=== PATIENT | male | born 1955 | race Caucasian/White ===

== ENCOUNTER 2024-01-04 09:26 | Outpatient (RCR) | payer MEDICARE, SELFPAY | END 2024-01-30 23:59 | disposition home or self-care (01) | LOC: SCTC 09:26 | PROVIDERS: PCP Family Medicine; Referring Provider Family Medicine; Visit Provider Nurse Practitioner Family | DX: D50.9 Iron deficiency anemia, unspecified (principal); D69.6 Thrombocytopenia, unspecified; I10 Essential (primary) hypertension; E11.9 Type 2 diabetes mellitus without complications | CPT/HCPCS: 99212; G0463 ==

== ENCOUNTER 2024-03-10 09:25 | Outpatient (RCR) | payer MEDICARE, SELFPAY | END 2024-04-01 23:59 | disposition home or self-care (01) | LOC: SCTC 09:25 | PROVIDERS: PCP Family Medicine; Referring Provider Family Medicine; Visit Provider Nurse Practitioner Family | DX: D50.9 Iron deficiency anemia, unspecified (principal); D69.6 Thrombocytopenia, unspecified; R16.2 Hepatomegaly with splenomegaly, not elsewhere classified; I10 Essential (primary) hypertension; M33.13 Other dermatomyositis without myopathy | CPT/HCPCS: 99212; G0463 ==

== ENCOUNTER → 2024-03-16 | Outpatient (CLI) | payer MEDICARE, SELFPAY ==
[2024-03-16 16:54] LABS: Basophils % (Auto) 0 % (0-2.5); Eosinophils % (Auto) 0 % (0-10); Hematocrit 41.8 % (41.0-53.0); Hemoglobin 14.3 g/dL (13.5-16.0); Immature Granulocytes % (Auto) 1 % (0-0); Immature Granulocytes Auto 0.04 Thou/mm3 (0.00-0.00); Immature Reticulocyte Fraction 10.9 % (2.3-13.4); Lymphocytes # (Auto) 0.2 Thou/mm3 (1.0-4.8); Lymphocytes % (Auto) 3 % (10-50); Mean Corpuscular HGB Conc 34.2 g/dl (31.0-37.0); Mean Corpuscular Hemoglobin 29.9 pg (25.0-35.0); Mean Corpuscular Volume 87 fL (80-100); Monocytes # (Auto) 0.3 Thou/mm3 (0.0-0.8); Monocytes % (Auto) 5 % (0-12); Neutrophils # (Auto) 6.1 Thou/mm3 (1.8-7.7); Neutrophils % (Auto) 91 % (37-80); Nucleated Red Blood Cell % 0 /100 WBC (0); Platelet Count 105 Thou/mm3 (140-440); RDW Standard Deviation 42.1 fL (35.1-43.9); Red Blood Count 4.78 Miln/mm3 (4.50-5.90); Reticulocyte % (Auto) 2.6 % (0.5-1.5); Reticulocyte Absolute Auto 121.9 Biln/L (25.0-75.0); Reticulocyte Hgb Content 35.8 pg (28.0-35.0); White Blood Count 6.7 Thou/mm3 (3.8-10.6)
[2024-03-16 17:25] LABS: Alanine Aminotransferase 20 U/L (10-49); Albumin, Serum 4.2 gm/dL (3.4-4.8); Albumin/Globulin Ratio 1.1 (1.2-2.2); Alkaline Phosphatase 78 U/L (46-116); Anion Gap 9 (7-16); Aspartate Amino Transferase 16 U/L (0-34); BUN/Creatinine Ratio 20 Ratio (12-20); Bilirubin,Total 0.5 mg/dL (0.3-1.2); Blood Urea Nitrogen 28 mg/dL (9-23); Calcium 9.1 mg/dL (8.3-10.6); Calcium (Corrected) 9.1 mg/dL (8.5-10.1); Carbon Dioxide 24.4 mMol/L (20.0-31.0); Chloride 100 mMol/L (98-107); Creatinine (Component) 1.4 mg/dL (0.6-1.3); Ferritin 365 ng/mL (10.5-307.3); Globulin 3.8 gm/dL (2.3-3.5); Osmolality,Calculated 296 (275-295); Potassium 4.7 mMol/L (3.4-5.1); Sodium 133 mMol/L (136-145); Total Iron Binding Capacity 272 mcg/dL (250-425); eGFR 55 See Note
[2024-03-16 19:37] LABS: Glucose 543 mg/dL (74-106)
[2024-03-16 19:49] LABS: Folate 22.43 ng/mL (>5.38); Vitamin B12 466 pg/mL (211-911)
[2024-03-16 20:00] LABS: Iron 54 mcg/dL (65-175); Percent Iron Saturation 19 % (20-55); Unsaturated Iron Binding 218 (225-295)
== END | disposition home or self-care (01) ==
LOC: SCTO 13:49
PROVIDERS: PCP Family Medicine; Referring Provider Dermatology; Visit Provider Nurse Practitioner Family
DX: D72.819 Decreased white blood cell count, unspecified (principal); E61.1 Iron deficiency; Z51.81 Encounter for therapeutic drug level monitoring
CPT/HCPCS: 36415; 80053; 82607; 82728; 82746; 83540; 83550; 85025; 85046

== ENCOUNTER → 2024-03-22 | Outpatient (CLI) | payer MEDICARE, SELFPAY ==
[2024-03-22 10:16] LABS: Misc Send Out* See Sep Rpt
[2024-03-22 11:17] LABS: Basophils % (Auto) 0 % (0-2.5); Eosinophils % (Auto) 0 % (0-10); Hematocrit 43.6 % (41.0-53.0); Hemoglobin 14.7 g/dL (13.5-16.0); Immature Granulocytes % (Auto) 1 % (0-0); Immature Granulocytes Auto 0.03 Thou/mm3 (0.00-0.00); Immature Reticulocyte Fraction 9.8 % (2.3-13.4); Lymphocytes # (Auto) 0.4 Thou/mm3 (1.0-4.8); Lymphocytes % (Auto) 6 % (10-50); Mean Corpuscular HGB Conc 33.7 g/dl (31.0-37.0); Mean Corpuscular Hemoglobin 30.3 pg (25.0-35.0); Mean Corpuscular Volume 90 fL (80-100); Monocytes # (Auto) 0.6 Thou/mm3 (0.0-0.8); Monocytes % (Auto) 9 % (0-12); Neutrophils # (Auto) 5.3 Thou/mm3 (1.8-7.7); Neutrophils % (Auto) 84 % (37-80); Nucleated Red Blood Cell % 0 /100 WBC (0); Platelet Count 121 Thou/mm3 (140-440); RDW Standard Deviation 43.6 fL (35.1-43.9); Red Blood Count 4.85 Miln/mm3 (4.50-5.90); Reticulocyte % (Auto) 2.1 % (0.5-1.5); Reticulocyte Absolute Auto 103.3 Biln/L (25.0-75.0); Reticulocyte Hgb Content 35.4 pg (28.0-35.0); White Blood Count 6.4 Thou/mm3 (3.8-10.6)
[2024-03-22 11:26] LABS: Glucose Estimated Average 275 mg/dL (80-131); Hemoglobin A1C 11.2 % Hgb (4.8-6.0)
[2024-03-22 11:34] LABS: Alanine Aminotransferase 21 U/L (10-49); Albumin, Serum 4.4 gm/dL (3.4-4.8); Albumin/Globulin Ratio 1.3 (1.2-2.2); Alkaline Phosphatase 81 U/L (46-116); Anion Gap 7 (7-16); Aspartate Amino Transferase 14 U/L (0-34); BUN/Creatinine Ratio 16 Ratio (12-20); Bilirubin,Total 0.6 mg/dL (0.3-1.2); Blood Urea Nitrogen 21 mg/dL (9-23); Calcium 9.4 mg/dL (8.3-10.6); Calcium (Corrected) 9.4 mg/dL (8.5-10.1); Carbon Dioxide 28.6 mMol/L (20.0-31.0); Cardiac Risk Estimate 4.5 RATIO (4.0-6.7); Chloride 103 mMol/L (98-107); Cholesterol 172 mg/dL (132-200); Creatinine (Component) 1.3 mg/dL (0.6-1.3); Globulin 3.5 gm/dL (2.3-3.5); Glucose 210 mg/dL (74-106); HDL Cholesterol 38 mg/dL (40-60); LDL Cholesterol,Calculated 93 mg/dL (0-130); Osmolality,Calculated 286 (275-295); Potassium 3.8 mMol/L (3.4-5.1); Sodium 139 mMol/L (136-145); Thyroid Stimulating Hormone 2.61 uIU/mL (0.55-4.78); Total Protein 7.9 gm/dL (5.7-8.2); Triglycerides 206 mg/dL (30-150); eGFR 60 See Note
[2024-03-22 11:46] LABS: Ferritin 464 ng/mL (10.5-307.3); PSA Medicare Annual Scrn 0.89 ng/mL (0-4.00); Total Iron Binding Capacity 288 mcg/dL (250-425)
[2024-03-22 11:46] LABS: Creatinine MALB Rnd Ur 245 mg/dL (30-125); Microalbumin Creat Ratio 52 mg/gCrea (<30); Microalbumin, Random Urine 127 mg/L (0-300)
[2024-03-22 11:59] LABS: Iron 74 mcg/dL (65-175); Percent Iron Saturation 25 % (20-55); Unsaturated Iron Binding 214 (225-295)
[2024-03-28 06:42] LABS: Gamma Glutamyl Transpeptidase* 17 U/L (3-70)
== END | disposition home or self-care (01) ==
LOC: COPL 09:51
PROVIDERS: PCP Nurse Practitioner Family; Referring Provider Nurse Practitioner Family; Visit Provider Nurse Practitioner Family
DX: K76.0 Fatty (change of) liver, not elsewhere classified (principal); D50.9 Iron deficiency anemia, unspecified; E11.9 Type 2 diabetes mellitus without complications; I10 Essential (primary) hypertension; E55.9 Vitamin D deficiency, unspecified; Z12.5 Encounter for screening for malignant neoplasm of prostate
CPT/HCPCS: 36415; 80053; 80061; 82043; 82306; 82570; 82728; 82977; 83036; 83540; 83550; 84153; 84443; 84466; 85025; 85046; G0103

== ENCOUNTER → 2024-04-26 | Outpatient (CLI) | payer MEDICARE, SELFPAY ==
[2024-04-26 12:21] LABS: Quantiferon-TB* See Sep Rpt
[2024-04-26 12:46] LABS: Basophils % (Auto) 0 % (0-2.5); Eosinophils % (Auto) 0 % (0-10); Hematocrit 42.8 % (41.0-53.0); Hemoglobin 14.6 g/dL (13.5-16.0); Immature Granulocytes % (Auto) 0 % (0-0); Immature Granulocytes Auto 0.03 Thou/mm3 (0.00-0.00); Lymphocytes # (Auto) 0.3 Thou/mm3 (1.0-4.8); Lymphocytes % (Auto) 4 % (10-50); Mean Corpuscular HGB Conc 34.1 g/dl (31.0-37.0); Mean Corpuscular Hemoglobin 29.8 pg (25.0-35.0); Mean Corpuscular Volume 87 fL (80-100); Monocytes # (Auto) 0.5 Thou/mm3 (0.0-0.8); Monocytes % (Auto) 7 % (0-12); Neutrophils # (Auto) 5.9 Thou/mm3 (1.8-7.7); Neutrophils % (Auto) 88 % (37-80); Nucleated Red Blood Cell % 0 /100 WBC (0); Platelet Count 117 Thou/mm3 (140-440); RDW Standard Deviation 41.1 fL (35.1-43.9); White Blood Count 6.8 Thou/mm3 (3.8-10.6)
[2024-04-26 13:26] LABS: Glucose Estimated Average 226 mg/dL (80-131); Hemoglobin A1C 9.5 % Hgb (4.8-6.0)
[2024-04-26 13:51] LABS: Alanine Aminotransferase 18 U/L (10-49); Albumin, Serum 4.1 gm/dL (3.4-4.8); Albumin/Globulin Ratio 1.3 (1.2-2.2); Anion Gap 11 (7-16); Aspartate Amino Transferase 16 U/L (0-34); BUN/Creatinine Ratio 21 Ratio (12-20); Bilirubin,Total 0.4 mg/dL (0.3-1.2); Blood Urea Nitrogen 27 mg/dL (9-23); Calcium 9.1 mg/dL (8.3-10.6); Calcium (Corrected) 9.1 mg/dL (8.5-10.1); Carbon Dioxide 24.5 mMol/L (20.0-31.0); Cardiac Risk Estimate 3.8 RATIO (4.0-6.7); Chloride 106 mMol/L (98-107); Cholesterol 128 mg/dL (132-200); Creatine Kinase 53 U/L (34-171); Creatinine (Component) 1.3 mg/dL (0.6-1.3); Ferritin 352 ng/mL (10.5-307.3); Globulin 3.1 gm/dL (2.3-3.5); Glucose 193 mg/dL (74-106); HDL Cholesterol 34 mg/dL (40-60); LDH (Lactate Dehydrogenase) 204 U/L (120-246); LDL Cholesterol,Calculated 66 mg/dL (0-130); Osmolality,Calculated 291 (275-295); Potassium 4.1 mMol/L (3.4-5.1); Sodium 141 mMol/L (136-145); Total Iron Binding Capacity 272 mcg/dL (250-425); Total Protein 7.2 gm/dL (5.7-8.2); Triglycerides 139 mg/dL (30-150); eGFR 60 See Note
[2024-04-26 14:29] LABS: Alkaline Phosphatase 71 U/L (46-116)
[2024-04-26 14:31] LABS: Iron 69 mcg/dL (65-175); Percent Iron Saturation 25 % (20-55); Unsaturated Iron Binding 203 (225-295)
[2024-04-26 14:38] LABS: Folate > 24.00 ng/mL (>5.38); Hepatitis A Antibody IgM Non Reactive (Non React); Hepatitis B Core Antibody IgM Non Reactive (Non React); Hepatitis B Surface Antigen Non Reactive (Non React); Hepatitis C Antibody Non Reactive (Non React); Vitamin B12 505 pg/mL (211-911)
== END | disposition home or self-care (01) ==
LOC: SCTO 11:51
PROVIDERS: PCP Nurse Practitioner Family; Referring Provider Nurse Practitioner Family; Visit Provider Dermatology
DX: D72.819 Decreased white blood cell count, unspecified (principal); E61.1 Iron deficiency; E11.9 Type 2 diabetes mellitus without complications; Z51.81 Encounter for therapeutic drug level monitoring
CPT/HCPCS: 36415; 80053; 80061; 80074; 82550; 82607; 82728; 82746; 83036; 83540; 83550; 83615; 85025; 86480

== ENCOUNTER 2024-05-05 09:00 | Outpatient (RCR) | payer MEDICARE, SELFPAY | END 2024-05-30 23:59 | disposition home or self-care (01) | LOC: SCTC 09:00 | PROVIDERS: PCP Nurse Practitioner Family; Referring Provider Nurse Practitioner Family; Visit Provider Nurse Practitioner Family | DX: D50.9 Iron deficiency anemia, unspecified (principal); D69.6 Thrombocytopenia, unspecified; R16.2 Hepatomegaly with splenomegaly, not elsewhere classified; I10 Essential (primary) hypertension; E11.9 Type 2 diabetes mellitus without complications; Z79.4 Long term (current) use of insulin; Z79.84 Long term (current) use of oral hypoglycemic drugs | CPT/HCPCS: 99212; G0463 ==

== ENCOUNTER → 2024-05-26 | Outpatient (CLI) | payer MEDICARE, SELFPAY ==
[2024-05-26 09:56] LABS: Misc Send Out* See Sep Rpt
[2024-05-26 10:33] LABS: Basophils % (Auto) 0 % (0-2.5); Eosinophils # (Auto) 0.1 Thou/mm3 (0.0-0.5); Eosinophils % (Auto) 1 % (0-10); Hematocrit 42.5 % (41.0-53.0); Hemoglobin 14.2 g/dL (13.5-16.0); Immature Granulocytes % (Auto) 0 % (0-0); Immature Granulocytes Auto 0.02 Thou/mm3 (0.00-0.00); Lymphocytes # (Auto) 0.3 Thou/mm3 (1.0-4.8); Lymphocytes % (Auto) 5 % (10-50); Mean Corpuscular HGB Conc 33.4 g/dl (31.0-37.0); Mean Corpuscular Hemoglobin 30.1 pg (25.0-35.0); Mean Corpuscular Volume 90 fL (80-100); Monocytes # (Auto) 0.5 Thou/mm3 (0.0-0.8); Monocytes % (Auto) 9 % (0-12); Neutrophils # (Auto) 5.1 Thou/mm3 (1.8-7.7); Neutrophils % (Auto) 85 % (37-80); Nucleated Red Blood Cell % 0 /100 WBC (0); Platelet Count 150 Thou/mm3 (140-440); RDW Standard Deviation 44.6 fL (35.1-43.9); Red Blood Count 4.72 Miln/mm3 (4.50-5.90); White Blood Count 6.1 Thou/mm3 (3.8-10.6)
[2024-05-26 10:48] LABS: Glucose Estimated Average 180 mg/dL (80-131); Hemoglobin A1C 7.9 % Hgb (4.8-6.0)
[2024-05-26 10:52] LABS: Ferritin 290 ng/mL (10.5-307.3); Iron 72 mcg/dL (65-175); Percent Iron Saturation 27 % (20-55); Total Iron Binding Capacity 265 mcg/dL (250-425); Unsaturated Iron Binding 193 (225-295)
[2024-05-26 10:53] LABS: Alanine Aminotransferase 18 U/L (10-49); Albumin, Serum 4.2 gm/dL (3.4-4.8); Albumin/Globulin Ratio 1.4 (1.2-2.2); Alkaline Phosphatase 64 U/L (46-116); Anion Gap 10 (7-16); Aspartate Amino Transferase 19 U/L (0-34); BUN/Creatinine Ratio 18 Ratio (12-20); Bilirubin,Total 0.5 mg/dL (0.3-1.2); Blood Urea Nitrogen 23 mg/dL (9-23); Calcium 8.8 mg/dL (8.3-10.6); Calcium (Corrected) 8.8 mg/dL (8.5-10.1); Carbon Dioxide 25.8 mMol/L (20.0-31.0); Chloride 108 mMol/L (98-107); Creatinine (Component) 1.3 mg/dL (0.6-1.3); Glucose 97 mg/dL (74-106); Osmolality,Calculated 290 (275-295); Potassium 3.8 mMol/L (3.4-5.1); Sodium 144 mMol/L (136-145); Total Protein 7.2 gm/dL (5.7-8.2); eGFR 60 See Note
== END | disposition home or self-care (01) ==
LOC: SCTO 09:45
PROVIDERS: PCP Physician Assistant; Referring Provider Nurse Practitioner Family; Visit Provider Nurse Practitioner Family
DX: D50.9 Iron deficiency anemia, unspecified (principal); E11.65 Type 2 diabetes mellitus with hyperglycemia; D72.819 Decreased white blood cell count, unspecified
CPT/HCPCS: 36415; 80053; 82728; 83036; 83540; 83550; 85025

== ENCOUNTER 2024-06-06 09:23 | Outpatient (RCR) | payer MEDICARE, SELFPAY | END 2024-06-29 23:59 | disposition home or self-care (01) | LOC: SCTC 09:23 | PROVIDERS: PCP Physician Assistant; Referring Provider Physician Assistant; Visit Provider Nurse Practitioner Family | DX: D69.6 Thrombocytopenia, unspecified (principal); D50.9 Iron deficiency anemia, unspecified; R16.2 Hepatomegaly with splenomegaly, not elsewhere classified | CPT/HCPCS: 99212; G0463 ==

== ENCOUNTER → 2024-06-22 | Outpatient (CLI) | payer MEDICARE, SELFPAY ==
[2024-06-22 09:51] LABS: Misc Send Out* See Sep Rpt
[2024-06-22 10:41] LABS: Basophils % (Auto) 0 % (0-2.5); Eosinophils # (Auto) 0.1 Thou/mm3 (0.0-0.5); Eosinophils % (Auto) 1 % (0-10); Hematocrit 41.9 % (41.0-53.0); Hemoglobin 14.1 g/dL (13.5-16.0); Immature Granulocytes % (Auto) 1 % (0-0); Immature Granulocytes Auto 0.04 Thou/mm3 (0.00-0.00); Lymphocytes # (Auto) 0.4 Thou/mm3 (1.0-4.8); Lymphocytes % (Auto) 7 % (10-50); Mean Corpuscular HGB Conc 33.7 g/dl (31.0-37.0); Mean Corpuscular Hemoglobin 29.7 pg (25.0-35.0); Mean Corpuscular Volume 88 fL (80-100); Monocytes # (Auto) 0.6 Thou/mm3 (0.0-0.8); Monocytes % (Auto) 11 % (0-12); Neutrophils # (Auto) 4.7 Thou/mm3 (1.8-7.7); Neutrophils % (Auto) 80 % (37-80); Nucleated Red Blood Cell % 0 /100 WBC (0); Platelet Count 129 Thou/mm3 (140-440); RDW Standard Deviation 42.4 fL (35.1-43.9); Red Blood Count 4.75 Miln/mm3 (4.50-5.90); White Blood Count 5.8 Thou/mm3 (3.8-10.6)
[2024-06-22 11:00] LABS: Glucose Estimated Average 154 mg/dL (80-131)
[2024-06-22 11:01] LABS: Alanine Aminotransferase 17 U/L (10-49); Albumin, Serum 4.3 gm/dL (3.4-4.8); Albumin/Globulin Ratio 1.5 (1.2-2.2); Alkaline Phosphatase 73 U/L (46-116); Anion Gap 10 (7-16); Aspartate Amino Transferase 18 U/L (0-34); BUN/Creatinine Ratio 19 Ratio (12-20); Bilirubin,Total 0.5 mg/dL (0.3-1.2); Blood Urea Nitrogen 26 mg/dL (9-23); Calcium 8.9 mg/dL (8.3-10.6); Calcium (Corrected) 8.9 mg/dL (8.5-10.1); Carbon Dioxide 25.9 mMol/L (20.0-31.0); Chloride 108 mMol/L (98-107); Creatinine (Component) 1.4 mg/dL (0.6-1.3); Globulin 2.9 gm/dL (2.3-3.5); Glucose 201 mg/dL (74-106); Osmolality,Calculated 297 (275-295); Potassium 4.1 mMol/L (3.4-5.1); Sodium 144 mMol/L (136-145); Total Protein 7.2 gm/dL (5.7-8.2); eGFR 55 See Note
[2024-06-22 11:03] LABS: Ferritin 325 ng/mL (10.5-307.3); Iron 53 mcg/dL (65-175); Percent Iron Saturation 20 % (20-55); Total Iron Binding Capacity 264 mcg/dL (250-425); Unsaturated Iron Binding 211 (225-295)
== END | disposition home or self-care (01) ==
LOC: COPL 09:31
PROVIDERS: PCP Nurse Practitioner Family; Referring Provider Nurse Practitioner Family; Visit Provider Nurse Practitioner Family
DX: D50.9 Iron deficiency anemia, unspecified (principal); E11.65 Type 2 diabetes mellitus with hyperglycemia
CPT/HCPCS: 36415; 80053; 82728; 83036; 83540; 83550; 85025

== ENCOUNTER → 2024-08-05 | Outpatient (CLI) | payer MEDICARE, SELFPAY ==
[2024-08-05 10:25] LABS: Basophils % (Auto) 1 % (0-2.5); Eosinophils % (Auto) 1 % (0-10); Hematocrit 43.6 % (41.0-53.0); Hemoglobin 14.5 g/dL (13.5-16.0); Immature Granulocytes % (Auto) 1 % (0-0); Immature Granulocytes Auto 0.03 Thou/mm3 (0.00-0.00); Immature Reticulocyte Fraction 11.7 % (2.3-13.4); Lymphocytes # (Auto) 0.3 Thou/mm3 (1.0-4.8); Lymphocytes % (Auto) 6 % (10-50); Mean Corpuscular HGB Conc 33.3 g/dl (31.0-37.0); Mean Corpuscular Hemoglobin 30.1 pg (25.0-35.0); Mean Corpuscular Volume 91 fL (80-100); Monocytes # (Auto) 0.5 Thou/mm3 (0.0-0.8); Monocytes % (Auto) 12 % (0-12); Neutrophils # (Auto) 3.4 Thou/mm3 (1.8-7.7); Neutrophils % (Auto) 80 % (37-80); Nucleated Red Blood Cell % 0 /100 WBC (0); Platelet Count 104 Thou/mm3 (140-440); RDW Standard Deviation 41.4 fL (35.1-43.9); Red Blood Count 4.82 Miln/mm3 (4.50-5.90); Reticulocyte % (Auto) 1.9 % (0.5-1.5); Reticulocyte Absolute Auto 93.5 Biln/L (25.0-75.0); White Blood Count 4.3 Thou/mm3 (3.8-10.6)
[2024-08-05 10:34] LABS: Alanine Aminotransferase 20 U/L (10-49); Albumin, Serum 4.2 gm/dL (3.4-4.8); Albumin/Globulin Ratio 1.1 (1.2-2.2); Alkaline Phosphatase 69 U/L (46-116); Anion Gap 9 (7-16); Aspartate Amino Transferase 23 U/L (0-34); BUN/Creatinine Ratio 13 Ratio (12-20); Bilirubin,Total 0.5 mg/dL (0.3-1.2); Blood Urea Nitrogen 17 mg/dL (9-23); Calcium 9.4 mg/dL (8.3-10.6); Calcium (Corrected) 9.4 mg/dL (8.5-10.1); Carbon Dioxide 27.8 mMol/L (20.0-31.0); Chloride 101 mMol/L (98-107); Creatinine (Component) 1.3 mg/dL (0.6-1.3); Glucose 135 mg/dL (74-106); Osmolality,Calculated 279 (275-295); Sodium 138 mMol/L (136-145); Total Protein 8.2 gm/dL (5.7-8.2); eGFR 60 See Note
[2024-08-05 10:37] LABS: Ferritin 269 ng/mL (10.5-307.3); Iron 75 mcg/dL (65-175); Percent Iron Saturation 28 % (20-55); Total Iron Binding Capacity 259 mcg/dL (250-425); Unsaturated Iron Binding 184 (225-295)
[2024-08-05 10:38] LABS: Folate 22.19 ng/mL (>5.38); Vitamin B12 576 pg/mL (211-911)
== END | disposition home or self-care (01) ==
LOC: COPL 08:53 → SCTO 09:07
PROVIDERS: PCP Family Medicine; Referring Provider Nurse Practitioner Family; Visit Provider Nurse Practitioner Family
DX: D72.819 Decreased white blood cell count, unspecified (principal); E61.1 Iron deficiency
CPT/HCPCS: 36415; 80053; 82607; 82728; 82746; 83540; 83550; 85025; 85046

== ENCOUNTER 2024-08-08 09:56 | Outpatient (RCR) | payer MEDICARE, SELFPAY | END 2024-08-29 23:59 | disposition home or self-care (01) | LOC: SCTC 09:56 | PROVIDERS: PCP Family Medicine; Referring Provider Family Medicine; Visit Provider Nurse Practitioner Family | DX: D69.6 Thrombocytopenia, unspecified (principal); M33.13 Other dermatomyositis without myopathy; R16.2 Hepatomegaly with splenomegaly, not elsewhere classified; Z86.2 Personal history of diseases of the blood and blood-forming organs and certain disorders involving the immune mechanism | CPT/HCPCS: 99212; G0463 ==

== ENCOUNTER → 2024-09-21 | Outpatient (CLI) | payer MEDICARE, SELFPAY ==
[2024-09-21 10:45] LABS: Basophils # (Auto) 0.0 Thou/mm3 (0.0-0.2); Basophils % (Auto) 1 % (0-2.5); Eosinophils # (Auto) 0.0 Thou/mm3 (0.0-0.5); Eosinophils % (Auto) 1 % (0-10); Hematocrit 44.4 % (41.0-53.0); Hemoglobin 14.7 g/dL (13.5-16.0); Immature Granulocytes Auto 0.02 Thou/mm3 (0.00-0.00); Lymphocytes # (Auto) 0.3 Thou/mm3 (1.0-4.8); Lymphocytes % (Auto) 6 % (10-50); Mean Corpuscular HGB Conc 33.1 g/dl (31.0-37.0); Mean Corpuscular Hemoglobin 30.2 pg (25.0-35.0); Mean Corpuscular Volume 91 fL (80-100); Monocytes # (Auto) 0.7 Thou/mm3 (0.0-0.8); Monocytes % (Auto) 12 % (0-12); Neutrophils # (Auto) 4.8 Thou/mm3 (1.8-7.7); Neutrophils % (Auto) 81 % (37-80); Nucleated Red Blood Cell # 0.00 Thou/mm3 (0.00-0.00); Nucleated Red Blood Cell % 0 /100 WBC (0); Platelet Count 131 Thou/mm3 (140-440); RDW Standard Deviation 45.7 fL (35.1-43.9); Red Blood Count 4.86 Miln/mm3 (4.50-5.90); White Blood Count 5.9 Thou/mm3 (3.8-10.6)
[2024-09-21 10:54] LABS: Glucose Estimated Average 148 mg/dL (80-131); Hemoglobin A1C 6.8 % Hgb (4.8-6.0)
[2024-09-21 10:57] LABS: Iron 43 mcg/dL (65-175); Percent Iron Saturation 16 % (20-55); Prostate Specific Antigen 0.75 ng/mL (0-4.00); T4 (Thyroxine) 7.4 mcg/dL (4.5-10.9); Total Iron Binding Capacity 263 mcg/dL (250-425); Unsaturated Iron Binding 220 (225-295); Vitamin D 25 Hydroxy Total 67.3 ng/mL (7.3-40.2)
[2024-09-21 10:59] LABS: Alanine Aminotransferase 16 U/L (10-49); Albumin, Serum 4.4 gm/dL (3.4-4.8); Albumin/Globulin Ratio 1.4 (1.2-2.2); Alkaline Phosphatase 84 U/L (46-116); Anion Gap 11 (7-16); Aspartate Amino Transferase 20 U/L (0-34); BUN/Creatinine Ratio 12 Ratio (12-20); Bilirubin,Total 0.7 mg/dL (0.3-1.2); Blood Urea Nitrogen 17 mg/dL (9-23); Calcium 9.0 mg/dL (8.3-10.6); Calcium (Corrected) 9.0 mg/dL (8.5-10.1); Carbon Dioxide 27.2 mMol/L (20.0-31.0); Cardiac Risk Estimate 4.1 RATIO (4.0-6.7); Chloride 106 mMol/L (98-107); Cholesterol 132 mg/dL (132-200); Creatinine (Component) 1.4 mg/dL (0.6-1.3); Globulin 3.1 gm/dL (2.3-3.5); Glucose 142 mg/dL (74-106); HDL Cholesterol 32 mg/dL (40-60); LDL Cholesterol,Calculated 79 mg/dL (0-130); Osmolality,Calculated 290 (275-295); Potassium 4.2 mMol/L (3.4-5.1); Sodium 144 mMol/L (136-145); Thyroid Stimulating Hormone 2.82 uIU/mL (0.55-4.78); Total Protein 7.5 gm/dL (5.7-8.2); Triglycerides 105 mg/dL (30-150); eGFR 54 See Note
[2024-09-21 12:06] LABS: Creatinine MALB Rnd Ur 145 mg/dL (30-125); Microalbumin Creat Ratio 29 mg/gCrea (<30); Microalbumin, Random Urine 42 mg/L (0-300)
== END | disposition home or self-care (01) ==
LOC: COPL 09:23 → SCTO 09:24
PROVIDERS: PCP Family Medicine; Referring Provider Nurse Practitioner Family; Visit Provider Nurse Practitioner Family
DX: E55.9 Vitamin D deficiency, unspecified (principal); E78.5 Hyperlipidemia, unspecified; D50.9 Iron deficiency anemia, unspecified; E11.65 Type 2 diabetes mellitus with hyperglycemia; I10 Essential (primary) hypertension; Z12.5 Encounter for screening for malignant neoplasm of prostate; D72.819 Decreased white blood cell count, unspecified
CPT/HCPCS: 36415; 80053; 80061; 82043; 82306; 82570; 83036; 83540; 83550; 84153; 84436; 84443; 85025

== ENCOUNTER 2024-09-28 14:12 | Outpatient (RCR) | payer MEDICARE, SELFPAY | END 2024-09-29 23:59 | disposition home or self-care (01) | LOC: SCTC 14:12 | PROVIDERS: PCP Family Medicine; Referring Provider Nurse Practitioner Family; Visit Provider Nurse Practitioner Family | DX: D69.6 Thrombocytopenia, unspecified (principal); M33.13 Other dermatomyositis without myopathy; R16.2 Hepatomegaly with splenomegaly, not elsewhere classified; Z86.2 Personal history of diseases of the blood and blood-forming organs and certain disorders involving the immune mechanism | CPT/HCPCS: 99212; G0463 ==

== ENCOUNTER → 2024-11-01 | Outpatient (CLI) | payer MEDICARE, SELFPAY ==
[2024-11-01 09:48] LABS: Basophils # (Auto) 0.0 Thou/mm3 (0.0-0.2); Basophils % (Auto) 0 % (0-2.5); Eosinophils # (Auto) 0.0 Thou/mm3 (0.0-0.5); Eosinophils % (Auto) 0 % (0-10); Hematocrit 43.4 % (41.0-53.0); Hemoglobin 14.8 g/dL (13.5-16.0); Immature Granulocytes Auto 0.01 Thou/mm3 (0.00-0.00); Immature Reticulocyte Fraction 10.5 % (2.3-13.4); Lymphocytes # (Auto) 0.3 Thou/mm3 (1.0-4.8); Lymphocytes % (Auto) 6 % (10-50); Mean Corpuscular HGB Conc 34.1 g/dl (31.0-37.0); Mean Corpuscular Hemoglobin 30.2 pg (25.0-35.0); Mean Corpuscular Volume 89 fL (80-100); Monocytes # (Auto) 0.6 Thou/mm3 (0.0-0.8); Monocytes % (Auto) 11 % (0-12); Neutrophils # (Auto) 4.0 Thou/mm3 (1.8-7.7); Neutrophils % (Auto) 82 % (37-80); Nucleated Red Blood Cell # 0.00 Thou/mm3 (0.00-0.00); Nucleated Red Blood Cell % 0 /100 WBC (0); Platelet Count 125 Thou/mm3 (140-440); RDW Standard Deviation 41.1 fL (35.1-43.9); Red Blood Count 4.90 Miln/mm3 (4.50-5.90); Reticulocyte % (Auto) 1.5 % (0.5-1.5); Reticulocyte Absolute Auto 74.5 Biln/L (25.0-75.0); Reticulocyte Hgb Content 33.7 pg (28.0-35.0); White Blood Count 4.9 Thou/mm3 (3.8-10.6)
[2024-11-01 10:04] LABS: Folate > 24.00 ng/mL (>5.38); Vitamin B12 506 pg/mL (211-911)
[2024-11-01 10:06] LABS: Ferritin 363 ng/mL (10.5-307.3); Iron 86 mcg/dL (65-175); Percent Iron Saturation 33 % (20-55); Total Iron Binding Capacity 259 mcg/dL (250-425); Unsaturated Iron Binding 173 (225-295)
[2024-11-01 10:21] LABS: Alanine Aminotransferase 23 U/L (10-49); Albumin, Serum 4.1 gm/dL (3.4-4.8); Albumin/Globulin Ratio 1.1 (1.2-2.2); Alkaline Phosphatase 83 U/L (46-116); Anion Gap 11 (7-16); Aspartate Amino Transferase 27 U/L (0-34); BUN/Creatinine Ratio 18 Ratio (12-20); Bilirubin,Total 0.5 mg/dL (0.3-1.2); Blood Urea Nitrogen 23 mg/dL (9-23); C-Reactive Protein < 0.5 mg/dL (0.0-0.9); Calcium 9.5 mg/dL (8.3-10.6); Calcium (Corrected) 9.5 mg/dL (8.5-10.1); Carbon Dioxide 25.1 mMol/L (20.0-31.0); Chloride 106 mMol/L (98-107); Creatine Kinase 189 U/L (34-171); Creatinine (Component) 1.3 mg/dL (0.6-1.3); Globulin 3.6 gm/dL (2.3-3.5); Glucose 154 mg/dL (74-106); LDH (Lactate Dehydrogenase) 210 U/L (120-246); Osmolality,Calculated 289 (275-295); Potassium 3.9 mMol/L (3.4-5.1); Sodium 142 mMol/L (136-145); Total Protein 7.7 gm/dL (5.7-8.2); eGFR 59 See Note
[2024-11-01 10:26] LABS: Sed Rate (ESR) 55 mm/hr (0-20)
[2024-11-08 06:43] LABS: Aldolase* 10.0 U/L (< OR = 8.1); Haptoglobin* 83 mg/dL (43-212)
== END | disposition home or self-care (01) ==
LOC: COPL 08:46 → SCTO 08:47
PROVIDERS: PCP Dermatology; Referring Provider Family Medicine; Visit Provider Nurse Practitioner Family
DX: D72.819 Decreased white blood cell count, unspecified (principal); E61.1 Iron deficiency; M33.13 Other dermatomyositis without myopathy
CPT/HCPCS: 36415; 80053; 82085; 82550; 82607; 82728; 82746; 83010; 83540; 83550; 83615; 85025; 85046; 85652; 86140

== ENCOUNTER 2024-11-03 14:29 | Outpatient (RCR) | payer MEDICARE, SELFPAY | END 2024-11-29 23:59 | disposition home or self-care (01) | LOC: SCTC 14:29 | PROVIDERS: PCP Family Medicine; Referring Provider Nurse Practitioner Family; Visit Provider Nurse Practitioner Family | DX: D50.9 Iron deficiency anemia, unspecified (principal); D69.6 Thrombocytopenia, unspecified; M33.13 Other dermatomyositis without myopathy | CPT/HCPCS: 99212; G0463 ==

== ENCOUNTER → 2024-12-14 | Outpatient (CLI) | payer MEDICARE, SELFPAY ==
[2024-12-14 10:53] LABS: Basophils # (Auto) 0.0 Thou/mm3 (0.0-0.2); Basophils % (Auto) 0 % (0-2.5); Eosinophils # (Auto) 0.0 Thou/mm3 (0.0-0.5); Eosinophils % (Auto) 0 % (0-10); Hematocrit 45.3 % (41.0-53.0); Hemoglobin 15.3 g/dL (13.5-16.0); Immature Granulocytes Auto 0.01 Thou/mm3 (0.00-0.00); Immature Reticulocyte Fraction 11.0 % (2.3-13.4); Lymphocytes # (Auto) 0.3 Thou/mm3 (1.0-4.8); Lymphocytes % (Auto) 5 % (10-50); Mean Corpuscular HGB Conc 33.8 g/dl (31.0-37.0); Mean Corpuscular Hemoglobin 29.8 pg (25.0-35.0); Mean Corpuscular Volume 88 fL (80-100); Monocytes # (Auto) 0.6 Thou/mm3 (0.0-0.8); Monocytes % (Auto) 12 % (0-12); Neutrophils # (Auto) 4.0 Thou/mm3 (1.8-7.7); Neutrophils % (Auto) 82 % (37-80); Nucleated Red Blood Cell # 0.00 Thou/mm3 (0.00-0.00); Nucleated Red Blood Cell % 0 /100 WBC (0); Platelet Count 142 Thou/mm3 (140-440); RDW Standard Deviation 42.0 fL (35.1-43.9); Red Blood Count 5.14 Miln/mm3 (4.50-5.90); Reticulocyte % (Auto) 1.6 % (0.5-1.5); Reticulocyte Absolute Auto 80.7 Biln/L (25.0-75.0); Reticulocyte Hgb Content 33.1 pg (28.0-35.0); White Blood Count 4.9 Thou/mm3 (3.8-10.6)
[2024-12-14 11:07] LABS: Folate > 24.00 ng/mL (>5.38); Vitamin B12 481 pg/mL (211-911)
[2024-12-14 11:09] LABS: Ferritin 325 ng/mL (10.5-307.3); Iron 93 mcg/dL (65-175); Percent Iron Saturation 33 % (20-55); Total Iron Binding Capacity 281 mcg/dL (250-425); Unsaturated Iron Binding 188 (225-295)
[2024-12-14 11:32] LABS: Alanine Aminotransferase 20 U/L (10-49); Albumin, Serum 4.5 gm/dL (3.4-4.8); Albumin/Globulin Ratio 1.5 (1.2-2.2); Alkaline Phosphatase 98 U/L (46-116); Anion Gap 12 (7-16); Aspartate Amino Transferase 24 U/L (0-34); BUN/Creatinine Ratio 12 Ratio (12-20); Bilirubin,Total 0.7 mg/dL (0.3-1.2); Blood Urea Nitrogen 15 mg/dL (9-23); Calcium 9.1 mg/dL (8.3-10.6); Calcium (Corrected) 9.1 mg/dL (8.5-10.1); Carbon Dioxide 23.6 mMol/L (20.0-31.0); Chloride 107 mMol/L (98-107); Creatinine (Component) 1.3 mg/dL (0.6-1.3); Globulin 3.1 gm/dL (2.3-3.5); Glucose 187 mg/dL (74-106); Osmolality,Calculated 290 (275-295); Potassium 4.3 mMol/L (3.4-5.1); Sodium 143 mMol/L (136-145); Thyroid Stimulating Hormone 3.23 uIU/mL (0.55-4.78); Total Protein 7.6 gm/dL (5.7-8.2); eGFR 59 See Note
[2024-12-14 16:42] LABS: Free T4 (Free Thyroxine) 1.40 ng/dL (0.89-1.76)
== END | disposition home or self-care (01) ==
LOC: SCTO 09:06
PROVIDERS: PCP Nurse Practitioner Family; Referring Provider Internal Medicine; Visit Provider Nurse Practitioner Family
DX: D72.819 Decreased white blood cell count, unspecified (principal); E61.1 Iron deficiency; R53.83 Other fatigue
CPT/HCPCS: 36415; 80053; 82607; 82728; 82746; 83540; 83550; 84439; 84443; 85025; 85046

== ENCOUNTER 2025-01-03 10:01 | Outpatient (RCR) | payer MEDICARE, SELFPAY | END 2025-01-29 23:59 | disposition home or self-care (01) | LOC: SCTC 10:01 | PROVIDERS: PCP Nurse Practitioner Family; Referring Provider Nurse Practitioner Family; Visit Provider Nurse Practitioner Family | DX: D69.6 Thrombocytopenia, unspecified (principal); D50.9 Iron deficiency anemia, unspecified; M33.13 Other dermatomyositis without myopathy | CPT/HCPCS: 99212; G0463 ==